=== PATIENT | female | born 1980 | race Caucasian/White ===

== ENCOUNTER 2019-08-07 17:50 | Emergency (ER) | payer BC, OTHER ==
[2019-08-07 18:21] LABS: #Basophils 0.1 thou/uL (0.0-0.2); #Eosinphils 0.4 thou/uL (0.0-0.7); #Lymphocytes 2.9 thou/uL (1.20-3.40); #Neutrophils 7.6 thou/uL (1.40-6.50); %Basophils 0.5 % (0.0-1.0); %Eosinophils 3.3 % (0.0-10.0); %Lymphocytes 24.1 % (21.0-51.0); %Neutrophils 64.1 % (42.0-75.0); Hemoglobin 11.6 g/dL (12.0-16.0); Mean Corpuscular HGB CONC 31.8 g/dL (32.0-36.0); Mean Corpuscular Hemoglobin 26.8 pg (27.0-31.0); Mean Corpuscular Volume 84.4 fL (78.0-98.0); Platelet Count 354 thou/uL (130-400); RBC Distribution Width 15.9 % (11.5-14.5); Red Blood Cell (RBC) Count 4.32 mill/uL (4.20-5.40); White Blood Cell (WBC) Count 11.9 thou/uL (4.8-10.8)
[2019-08-07 18:36] LABS: Bilirubin, Total Less than 0.2 mg/dL (0.2-1.2)
[2019-08-07 18:39] LABS: ALT (SGPT) 15 U/L (8-55); AST (SGOT) 12 U/L (5-34); Albumin 3.9 g/dL (3.5-5.0); Alkaline Phosphatase 86 U/L (40-110); Anion Gap 14 mmol/L (10-20); BUN (Urea Nitrogen) 9 mg/dL (7.0-18.7); Calc. Creatinine Clearance 0 mL/min (70-130); Calcium 9.4 mg/dL (7.8-10.44); Carbon Dioxide 23 mmol/L (22-29); Chloride 105 mmol/L (98-107); Estimated GFR-MDRD Greater than 90; Globulin 4.1 g/dL (2.4-3.5); Glucose 92 mg/dL (70-105); Potassium 3.8 mmol/L (3.5-5.1); Sodium 138 mmol/L (136-145)
--- NOTE | 2019-08-07 19:27 | CT ---
CT BRAIN WITHOUT CONTRAST: 08/07/19 HISTORY: Fall. COMPARISON: CT brain from 2003. FINDINGS: There is no acute hemorrhage or infarct. No midline shift or mass effect. Ventricular size and extra- axial CSF spaces are normal. The calvarium is intact. The paranasal sinuses and mastoids are clear. IMPRESSION: No acute intracranial abnormality. POS: HOME
--- NOTE | 2019-08-07 19:32 | RAD ---
LUMBAR SPINE THREE VIEW: 08/07/19 HISTORY: Pain. COMPARISON: None. FINDINGS: There is a lumbosacral transitional vertebra of what will be termed L6 with transverse process having a normal articulation with the sacrum. There is sclerosis on either side with synchondrosis. There i s also asymmetric left SI joint degenerative disease worse than the right. Mild narrowing of the pubic symphysis. Mild narrowing of the L6-S1 disc space. IMPRESSION: 1. 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 2. 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 3. Moderate pubic symphysis degenerative disease. 4. Mild spondylosis at L6-S1. POS: HOME
--- NOTE | 2019-08-09 15:10 | EKG ---
Test Reason : Blood Pressure : / mmHG Vent. Rate : 072 BPM Atrial Rate : 072 BPM P-R Int : 128 ms QRS Dur : 088 ms QT Int : 416 ms P-R-T Axes : 013 011 017 degrees QTc Int : 455 ms Normal sinus rhythm Normal ECG Confirmed by HETAL SHAW, MIKE Shen ([id number]), photography editor GM DAVIS ([id number]) on 08/09/2019 3:10:05 PM Referred By: Confirmed By:MIKE FONG MD
== END 2019-08-07 19:39 | disposition home or self-care (01) ==
LOC: ERS 17:50
DX: S06.9X9A Unspecified intracranial injury with loss of consciousness of unspecified duration, initial encounter (principal); D64.9 Anemia, unspecified; W10.9XXA Fall (on) (from) unspecified stairs and steps, initial encounter
CPT/HCPCS: 70450; 72100; 80053; 84484; 85025; 93005